=== PATIENT | female | born 1965 | race Caucasian/White ===

== ENCOUNTER 2018-02-20 06:02 | Emergency (ER) | payer BC, MEDICAID ==
--- NOTE | 2018-02-20 07:12 | EDM.PDOC ---
ED HPI GENERAL MEDICAL PROBLEM - General Chief Complaint: Upper Extremity Injury/Pain Stated Complaint: POSS BROKE LT HAND Time Seen by Provider: 02/20/18 06:20 Source of Information: Reports: Patient History Limitations: Reports: No Limitations - History of Present Illness INITIAL COMMENTS - FREE TEXT/NARRATIVE: Heydi comes into [facility] ED with a L hand injury that occurred yesterday afternoon when she fell off a counter and landed onto her L outstretched hand. There was no head or neck injury, or LOC. There has been residual pain and throbbing in the L hand in proximity to the middle digit radiating into the dorsum of the hand that produced poor sleep over night. Analgesics including NSAIDs have not helped. Of interest is a PMH of RA, currently taking MTX for managment. 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: Reports: Acetaminophen, Cold Therapy, NSAIDS - Related Data Allergies Allergy/AdvReac Type Severity Reaction Status Date / Time morphine Allergy Other Verified 02/20/18 06:52 tetanus immune globulin Allergy Fever Verified 02/20/18 06:52 Past Medical History Musculoskeletal History: Reports: RA Neurological History: Reports: Seizure Social & Family History - Family History Family Medical History: Noncontributory - Tobacco Use Smoking Status *Q: Never Smoker Second Hand Smoke Exposure: No - Caffeine Use Caffeine Use: Reports: Coffee - Recreational Drug Use Recreational Drug Use: No Review of Systems - Review of Systems Review Of Systems: ROS reveals no pertinent complaints other than HPI. ED EXAM, GENERAL - Physical Exam Exam: See Below Exam Limited By: No Limitations General Appearance: Alert, WD/WN, Anxious, Mild Distress Head: Normocephalic Neck: Normal Inspection, Supple, Non-Tender, Full Range of Motion Respiratory/Chest: Lungs Clear Cardiovascular: Regular Rate, Rhythm, No Murmur Back Exam: Normal Inspection Extremities: Limited Range of Motion (L hand: no visible swelling of hand or digits; limited tenderness of the middle finger with tenderness dorsally involving the extensor tendons; no visible contusion; extension and flexion are full, albeit painful ) Neurological: Alert, Oriented, CN II-XII Intact, No Motor/Sensory Deficits Psychiatric: Normal Affect, Anxious Skin Exam: Warm, Dry, Intact Lymphatic: No Adenopathy Course - Vital Signs Text/Narrative:: I reviewed x rays of L hand and digits, noting some joint space narrowing of multiple digits, but no fx seen. Last Recorded V/S: Last Vital Signs Temp 36.8 C 02/20/18 06:10 Pulse 77 02/20/18 06:10 Resp 20 02/20/18 06:10 BP 134/72 02/20/18 06:10 Pulse Ox 97 02/20/18 06:10 - Orders/Labs/Meds Orders: Active Orders 24 hr Category Date Time Status Hand Comp Min 3V Lt [CR] Stat Exams 02/20/18 06:06 Taken Departure - Departure Time of Disposition: 06:50 Disposition: Home, Self-Care 01 Condition: Fair Clinical Impression: Sprain and strain of left hand - Discharge Information *PRESCRIPTION DRUG MONITORING PROGRAM REVIEWED*: Not Applicable *COPY OF PRESCRIPTION DRUG MONITORING REPORT IN PATIENT ELIZA: Not Applicable Referrals: Abdoulaye Chaney MD [Primary Care Provider] - Forms: ED Department Discharge - Problem List & Annotations (1) Sprain and strain of left hand SNOMED Code(s): 55974732901816965 Code(s): S63.92XA - SPRAIN OF UNSP PART OF LEFT WRIST AND HAND, INIT ENCNTR; S66.912A - STRAIN OF UNSP MUSC/FASC/TEND AT WRS/HND LV, LEFT HAND, INIT Status : Acute Current Visit: Yes Annotation/Comment:: Simple strain/sprain of L hand, managed with heat, gentle ROM and stretches, and NSAIDs. She has Tylenol # 3 at home for breakthrough pain. - Problem List Review Problem List Initiated/Reviewed/Updated: Yes - My Orders Last 24 Hours: My Active Orders 02/20/18 06:06 Hand Comp Min 3V Lt [CR] Stat - Assessment/Plan Last 24 Hours: My Active Orders 02/20/18 06:06 Hand Comp Min 3V Lt [CR] Stat Plan: Follow up with PCP if needed.
--- NOTE | 2018-02-20 09:46 | CR ---
INDICATION: Possible fracture, fell landing on hand last night. LEFT HAND: Three views of the left hand were obtained 02/20/2018. No comparisons were available. Minimal degenerative changes are noted at the first metacarpocarpal joint and DIPJ of the 3rd finger. Minimal degenerative changes are noted at the DIPJs of the 2nd and 4th fingers. A fracture, dislocation, or other acute bone or joint abnormality was not identified. MTDD
== END 2018-02-20 06:45 | disposition home or self-care (01) ==
LOC: FB.ED 06:02
DX: S66.912A Strain of unspecified muscle, fascia and tendon at wrist and hand level, left hand, initial encounter (principal); S63.92XA Sprain of unspecified part of left wrist and hand, initial encounter; W17.89XA Other fall from one level to another, initial encounter; Z88.5 Allergy status to narcotic agent; Z88.7 Allergy status to serum and vaccine
CPT/HCPCS: 73130-LT; 99282